=== PATIENT | female | born 1950 | race Caucasian/White ===

== ENCOUNTER 2021-11-24 21:49 | Emergency (ER) | payer MEDICARE ==
[2021-11-25 02:09] LABS: BASOPHIL 0.5 % (0-2); EOSINOPHIL 2.8 % (0-7); HCT 39.9 % (37.0-47.0); HGB 13.3 g/dl (12.5-16.0); MCH 30.8 pg (25.0-31.0); MCHC 33.3 g/dL (32.0-36.0); MCV 92.4 fL (78.0-100.0); MONOCYTE 11.5 % (0-12); MPV 9.2 fL (6.0-9.5); NRBC 0; PLT 331 K/uL (150-400); RBC 4.32 M/uL (4.20-5.40); RDW 13.3 % (11.5-14.0); WBC 8.3 K/uL (4.0-10.5)
[2021-11-25 02:35] LABS: BUN/CREAT RATIO (CALC) 20.8 RATIO; C-REACTIVE PROTEIN 0.7 mg/dL (<=0.90); CREATININE 0.96 mg/dL (0.51-0.95); POTASSIUM 4.4 mmol/L (3.5-5.1); URIC ACID 4.5 mg/dL (2.6-6.2)
[2021-11-25] MEDS ORDERED: CEFDINIR300 MG PO (04:26)
[2021-11-25] MEDS ORDERED: ONDANSETRON ODT4 MG PO (04:27)
[2021-11-25] MEDS ORDERED: NORCO 5-325 TA1 EACH PO (04:27)
== END 2021-11-25 04:43 | disposition home or self-care (01) ==
LOC: FER 21:49
PROVIDERS: Internal Medicine
DX: L03.115 Cellulitis of right lower limb (principal); I10 Essential (primary) hypertension; Z88.0 Allergy status to penicillin; Z88.8 Allergy status to other drugs, medicaments and biological substances; Z79.899 Other long term (current) drug therapy
CPT/HCPCS: 36415; 73630; 80048; 84145; 84550; 85025; 86140; J0696; J1100

== ENCOUNTER 2021-12-01 20:08 | Emergency (ER) | payer MEDICARE ==
[~2021-12-01 20:08] MED LIST: CEFDINIR300 MG PO; NORCO 5-325 TA1 EACH PO; ONDANSETRON ODT4 MG PO
[2021-12-01 20:56] LABS: BASOPHIL 0.4 % (0-2); HCT 40.1 % (37.0-47.0); HGB 13.5 g/dl (12.5-16.0); LYMPHOCYTE 18.1 % (15-48); MCH 31.3 pg (25.0-31.0); MCHC 33.7 g/dL (32.0-36.0); MCV 92.8 fL (78.0-100.0); MPV 8.9 fL (6.0-9.5); NEUTROPHIL 67.8 % (41-80); NRBC 0; PLT 335 K/uL (150-400); RBC 4.32 M/uL (4.20-5.40); RDW 13.5 % (11.5-14.0); WBC 9.4 K/uL (4.0-10.5)
[2021-12-01 21:25] LABS: ALBUMIN 3.9 g/dL (3.4-5.0); ALKALINE PHOSHATASE 116 U/L (46-116); ALT 59 U/L (14-59); AST 29 U/L (15-37); BILIRUBIN - TOTAL 0.4 mg/dL (0.2-1.0); BUN 21 mg/dL (7-18); BUN/CREAT RATIO (CALC) 21.2 RATIO; CHLORIDE 96 mmol/L (98-107); CO2 (BICARBONATE) 30 mmol/L (21-32); CREATININE 0.99 mg/dL (0.51-0.95); GLOBULIN (CALCULATION) 3.9 g/dL; GLUCOSE 132 mg/dL (74-106); LIPASE 235 U/L (73-393); POTASSIUM 4.2 mmol/L (3.5-5.1); TOTAL PROTEIN 7.8 g/dL (6.4-8.2)
[2021-12-01 21:38] LABS: AMPHETAMINES NEGATIVE (NEGATIVE); BARBITURATES NEGATIVE (NEGATIVE); ECSTASY (MDMA) NEGATIVE (NEGATIVE); MARIJUANA (THC) NEGATIVE (NEGATIVE); METHADONE NEGATIVE (NEGATIVE); OPIATES NEGATIVE (NEGATIVE); OXYCODONE NEGATIVE (NEGATIVE)
[2021-12-01 21:47] LABS: BILIRUBIN NEGATIVE (NEGATIVE); BLOOD NEGATIVE Ery/uL (NEGATIVE); CLARITY CLEAR (CLEAR); COLOR YELLOW (YELLOW); GLUCOSE (U) NORMAL (NORMAL); LEUKOCYTES TRACE Leu/uL (NEGATIVE); NITRITE NEGATIVE (NEGATIVE); PROTEIN NEGATIVE (NEGATIVE); SPECIFIC GRAVITY 1.015 (1.001-1.030); UROBILINOGEN 0.2 mg/dL (0.2-1.0)
[2021-12-01 21:57] LABS: BACTERIA TRACE
== END 2021-12-01 23:51 | disposition home or self-care (01) ==
LOC: FER 20:08
PROVIDERS: Internal Medicine
DX: R55 Syncope and collapse (principal); E86.0 Dehydration; K21.9 Gastro-esophageal reflux disease without esophagitis; I10 Essential (primary) hypertension; Z88.0 Allergy status to penicillin; Z88.8 Allergy status to other drugs, medicaments and biological substances
CPT/HCPCS: 36415; 70450; 71250; 80053; 80305; 81001; 83690; 83880; 84145; 84484; 85025; 93005; G0480; J2405; J7040